=== PATIENT | male | born 1965 | race Caucasian/White ===

== ENCOUNTER 2018-09-21 04:58 | Observation (INO) | payer OTHER ==
[~2018-09-21] VITALS: Ht 172.7 cm; Wt 84.1 kg
--- NOTE | ~2018-09-21 | HEMODYNAMI ---
PATIENT:LETY SWEENEY MEDICAL RECORD: [id number] : 63 LOCATION:NIS[facility] PerezKEYANA ADMISSION DATE: 09/21/18 Generatedon:09/21/201811:29 Patient name: LETY SWEENEY Patient #: [id number] SSN: D OB: 1965 Date of study: 09/21/2018 Page: Of Hemodynamic Procedure Report Patient Data Patient Demographics Procedure consent was obtained First Name: LETY Gender: Male Last Name: ZAHRA : 1965 Patient #: [id number] Age: 53 year(s) Race: Additional ID: [id number] Contact details Address: [address] [place] [address] State: [place] City: [place] Zip code: [address] Admission Admission Data Admission Date: 09/21/2018 Admission Time: 9:17 Room #: LANDRY Lab Results Lab Result Date: 09/21/2018 Lab Result Time: 5:10 Biochemistry Name Units Result Min Max BUN mg/dl 26 --(----)-* 7 18 Creatinine mg/dl 1.2 --(---*)-- 0.6 1.3 CBC Name Units Result Min Max Hematocrit % 49 --(--*-)-- 42 54 Hemoglobin g/dl 17.8 --(----)*- 13.5 17.5 Procedure Procedure Types Cath Procedure Diagnostic Procedure LHC LHC w/Coronaries Procedure Description Procedure Date Procedure Date: 09/21/2018 Procedure Start Time: 11:18 Procedure End Time: 11:27 Procedure Staff Name Function Maxx Flores MD Performing Physician Silvana Templeton RT Monitor Leighann Villavicencio RT Scrub Ravindra Gonzalez RN Nurse Procedure Data Cath Procedure Fluoroscopy Diagnostic fluoroscopy Total fluoroscopy Time: 1.4 time: 1.4 min min Diagnostic fluoroscopy Total fluoroscopy dose: 390 dose: 390 mGy mGy Contrast Material Contrast Material Type Amount (ml) Isovue 300 44 Entry Location Entry Primary Successful Side Size Upsize Upsize Entry Closure Larsen ccessful Closure Location (Fr) 1 (Fr) 2 (Fr) Remarks Device Remarks Radial Right 6 Fr Mechanical artery Short Compression Estimated blood loss: 5 ml Diagnostic catheters Device Type Used For End Catheter Placement DIAGNOSTIC [place] 110cm 5 Multi-vessel Fr catheter ([id number]) Angiography Procedure Complications No complications Procedure Medications Medication Administration Route Dosage 0.9% NaCl I.V. 100 ml/hr Oxygen etCO2 Nasal cannula 2 l/min Heparin Flush Bag added to field 2 bags (1000units/500ml NS) Lidocaine 2% added to field 20 Radial Cocktail added to field 1 syringe (Verapomil 2mg/Nitro 400mcg/Heparin 1500units) Versed I.V. 2 mg Fentanyl I.V. 100 mcg Radial Cocktail I.A. 1 syringe (Verapomil 2mg/Nitro 400mcg/Heparin 1500units) Hemodynamics Rest HGB: 17.8 (g/dl) Heart Rate: 103 (bpm) Pressure Samples Time Site Value (mmHg) Purpose Heart Use Rate(bpm) 11:21 LV 73/5,9 Snapshot 106 Snapshots Pre Cath Intra NCS Post Cath Vital Signs Time Heart Resp SPO2 etCO2 NIBP (mmHg) Rhythm Pain Sedation Rate (ipm) (%) (mmHg) Status Level (bpm) 11:00:23 106 24 99 31.3 141/85(103) NSR 0 (11) 10(A) , No pain 11:04:37 105 16 98 33.6 128/81(104) NSR 0 (11) 10(A) , No pain 11:08:45 106 14 96 34.3 127/77(98) NSR 0 (11) 10(A) , No pain 11:12:57 105 14 97 35 129/73(97) NSR 0 (11) 10(A) , No pain 11:17:04 105 14 97 35 126/72(96) NSR 0 (11) 10(A) , No pain 11:21:19 110 14 96 33.5 111/66(88) NSR 0 (11) 9(A) , No pain 11:25:24 110 14 96 35 116/70(88) NSR 0 (11) 9(A) , No pain Medications Time Medication Route Dose Verified Delivered Reason Notes Effectiveness by by 11:00:25 0.9% NaCl I.V. 100 Ravindra Ravindra Per ml/hr Carlos Gonzalez physician RN RN 11:00:35 Oxygen etCO2 2 l/min Ravindra Ravindra Per Nasal Carlos Gonzalez physician cannula RN RN 11:00:47 Heparin Flush added 2 bags Ravindra Ravindra used for Bag to Loremma Gonzalez procedure (1000units/500ml field RN RN NS) 11:00:58 Lidocaine 2% added 20ml Ravindra Ravindra for local to vial Lorigan Carlos anesthetic field RN RN 11:01:13 Radial Cocktail added 1 Ravindra Ravindra used for (Verapomil to syringe Lorigan Carlos procedure 2mg/Nitro field RN RN 400mcg/Heparin 1500units) 11:15:54 Versed I.V. 2 mg Ravindra Ravindra for sedation Carlos Gonzalez RN RN 11:16:03 Fentanyl I.V. 100 mcg Ravindra Ravindra for sedation Carlos Gonzalez RN RN 11:20:44 Radial Cocktail I.A. 1 Ravindra Maxx for (Verapomil syringe Carlos Flores MD vasodilation 2mg/Nitro RN 400mcg/Heparin 1500units) Procedure Log Time Note 10:43:46 Informed consent obtained and on chart 10:44:21 Ravindra Gonzalez RN sent for patient. Start room use. 10:44:22 Time tracking: Regular hours (M-F 7:00 - 5:00) 10:44:26 Plan of Care:Hemodynamics will remain stable., Cardiac rhythm will remain stable., Comfort level will be maintained., Respiratory function will remain adequate., Patient/ family verbilizes understanding of procedure., Procedure tolerated without complication., Recovers from procedure without complications.. 10:54:39 Patient received from Pre/Post Procedure Room to CCL 2 Alert and oriented. Tansferred to table in Supine position. 10:54:40 Warm blankets applied, and sharon hugger turned on for patient comfort. 10:54:40 Correct patient and procedure confirmed by team. 10:54:41 ECG and BP/O2 sat monitors applied to patient. 10:56:23 H&P Date Dictated: 09/21/2018 Within 30 days and on chart.. 10:56:25 Pre-procedure instructions explained to patient. 10:56:25 Pre-op teaching completed and patient verbalized understanding. 10:56:42 Family unavailable. 10:56:43 Patient NPO since Midnight. 10:56:47 Previous problem with sedation/anesthesia? No ? 10:56:48 Snore? Yes 10:56:49 Sleep apnea? No 10:56:50 Deviated septum? No 10:56:53 Opens mouth fully? Yes 10:56:54 Sticks out tongue? Yes 10:56:55 Airway obstruction? No ? 10:57:01 Dentures? Yes partial in tight 10:57:04 Is the patient allergic to Iodine/contrast media? No. 10:57:08 Is patient on blood thinner?No 10:57:09 Patient diabetic? Yes. 10:57:10 If diabetic: On Metformin? No 10:58:41 Lab Result : BUN 26 mg/dl 10:58:41 Lab Result : Creatinine 1.2 mg/dl 10:58:41 Lab Result : Hematocrit 49 % 10:58:41 Lab Result : Hemoglobin 17.8 g/dl 10:58:47 Lab results completed and on chart. 10:58:51 Right Radial & Right Groin area was prepped with chlora-prep and draped in sterile fashion 10:58:52 Alarms reviewed by R. N. 10:58:52 Sharps counted by scrub and verified by R.N. 10:58:57 Pre procedure: right dorsailis pedis pulse 2+ Normal; easily identifiable; not easily obliterated 10:58:59 Modified Lalo's test Ulnar < 7 seconds 10:59:01 Patient pain scale 0/10 ?. 10:59:16 IV patent on arrival in left antecubital with 0.9% NaCl at [facility]. 10:59:22 Vital chart was started 10:59:23 Baseline sample Acquired. 10:59:25 Rhythm: sinus tachycardia 10:59:26 Full Disclosure recording started 11:00:25 0.9% NaCl 100 ml/hr I.V. was administered by Ravindra Gonzalez RN; Per physician; 11:00:35 Oxygen 2 l/min etCO2 Nasal cannula was administered by Ravindra Gonzalez RN; Per physician; 11:00:47 Heparin Flush Bag (1000units/500ml NS) 2 bags added to field was administered by Ravindra Gonzalez RN; used for procedure; 11:00:58 Lidocaine 2% 20ml vial added to field was administered by Ravindra Gonzalez RN; for local anesthetic; 11:01:13 Radial Cocktail (Verapomil 2mg/Nitro 400mcg/Heparin 1500units) 1 syringe added to field was administered by Ravindra Gonzalez RN; used for procedure; 11:14:57 Physician arrived 11:14:57 --------ALL STOP TIME OUT------ 11:14:58 Final Timeout: patient, procedure, and site verified with staff and physician. All members of the team are in agreement. 11:15:02 Right Radial & Right Groin site verified by team. 11:15:05 Physical assessment completed. ASA score P 2 - A patient with mild systemic disease as per Maxx Flroes MD. 11:15:10 Sedation plan: IV Moderate Sedation Medication:Versed, Fentanyl 11:15:20 Use device set Radial Dx or PCI 11:15:21 ACIST Syringe (11607) opened to sterile field. 11:15:22 Medline Cath Pack ([id number]) opened to sterile field. 11:15:22 Bag Decanter (2002S) opened to sterile field. 11:15:23 DIAGNOSTIC WIRE .035 260cm J wire (108462) opened to sterile field. 11:15:23 ACIST Hand Control (29704) opened to sterile field. 11:15:23 ACIST Manifold (18713) opened to sterile field. 11:15:24 Tegaderm 4 x 4 (1626W) opened to sterile field. 11:15:26 MBrace Wrist Support ([id number]) opened to sterile field. 11:15:28 SHEATH 6FR Slender (83-7848) opened to sterile field. 11:15:54 Versed 2 mg I.V. was administered by Ravindra Gonzalez RN; for sedation; 11:16:03 Fentanyl 100 mcg I.V. was administered by Ravindra Gonzalez RN; for sedation; 11:18:44 Procedure started. 11:18:56 Local anesthetic to right radial artery with Lidocaine 2% by Maxx Flores MD.INITIAL ACCESS ONLY 11:19:35 A 6 Fr Short sheath was inserted into the Right Radial artery 11:19:40 A DIAGNOSTIC [place] 110cm 5 Fr catheter (808042) was advanced over the wire and used for Multi-vessel Angiography. 11:20:44 Radial Cocktail (Verapomil 2mg/Nitro 400mcg/Heparin 1500units) 1 syringe I.A. was administered by Maxx Flores MD; for vasodilation; 11:21:41 LV hemodynamics recorded. 11:21:43 LV gram done using KRUEGER 11::45 Injector settings: Ml/sec: 5, Volume: 15, 11:21:51 EF : 65 % 11:22:01 RCA angiography performed. 11::49 Injector settings: Ml/sec: 3, Volume: 6, 11:22:52 LCA angiography performed. 11::54 Injector settings: Ml/sec: 3, Volume: 6, 11:24:39 Catheter removed. 11:24:50 TR BAND Standard ([id number]) opened to sterile field. 11:25:00 Sheath removed intact; hemostasis achieved with Mechanical Compression to the Right Radial artery. 11:25:02 Procedure ended.(Physican Out) 11:25:42 Fluoroscopy time 01.40 minutes. 11:25:47 Fluoroscopy dose: 390 mGy 11:25:47 Flurop Dose total: 390 11:25:59 Contrast amount:Isovue 300 44ml. 11:26:00 Sharps counted by scrub and verified by R.N. 11:26:03 TR band inflated with 10cc of air. 11:26:04 Insertion/operative site no bleeding no hematoma. 11:26:11 Post right radial artery:stable 11:26:13 Post Procedure Pulses reassessed and unchanged 11:26:16 Post procedure rhythm: unchanged. 11:26:18 Estimated blood loss: 5 ml 11:26:20 Post procedure instruction explained to patient.Patient verbalizes understanding. 11:26:20 Patient needs reinforcement of post procedure teaching. 11:26:30 Procedure and supply charges have been captured, reviewed, submitted and are correct. 11:26:36 Procedure Complication : No complications 11:26:52 Vital chart was stopped 11:26:54 See physician's report for complete and final results. 11:26:58 Report given to [facility]. 11:27:01 Patient transfered to [facility] with Stretcher. 11:27:04 Procedure ended. 11:27:04 Full Disclosure recording stopped 11:27:08 End room use (Document Last) Device Usage Item Name Manufacture Quantity Catalog Hospital Part Current Minimal Lot# / Number Charge Number Stock Stock Serial# Code ACIST Acist 1 01790 [id number] 190472 344400 20 Syringe Medical (73069) Systems Inc Medline Medline 1 [id number] 155837 72139 296164 5 Cath Pack ([id number]) Bag Microtek 1 2001S 079562 41456 525273 5 Decanter Medical Inc. (2001S) DIAGNOSTIC [place] 1 140842 441964 112559 539945 30 WIRE .035 260cm J wire (466238) ACIST Hand Acist 1 90185 696332 921124 768371 5 Control Medical (71844) Systems Inc ACIST Acist 1 82550 191263 243718 149094 5 Manifold Medical (40046) Systems Inc Tegaderm 4 3M 1 1626W 465349 164801 717670 5 x 4 (1626W) MBrace Advanced 1 140-0250-00 723156 26638 905914 5 Wrist Vascular Support Dynamics ([id number]) SHEATH 6FR Terumo 1 [id number] 429226 306354 600636 40 Slender (80-1060) DIAGNOSTIC Terumo 1 40-7043 244294 999780 036069 5 [place] 110cm 5 Fr catheter (952604) TR BAND Terumo 1 [id number] 105313 801500 392534 40 Standard ([id number]) Signature Audit [employer] Stage Time Signature Unsigned Intra-Procedure 09/21/2018 Leighann Saud 11:28:56 AM RT(R) Signatures Monitor : Silvana Templeton Signature : RT Date : Time : [facility] [address] [place] [address]
--- NOTE | ~2018-09-21 | OP ---
PATIENT NAME: LETY SWEENEY MEDICAL RECORD: [id number] :63 LOCATION:D.M2 D.0 ADMISSION DATE:09/21/18 SURGEON: ANGI MCDANIEL MD DATE OF OPERATION: 09/21/2018 PROCEDURES: 1. Left heart catheterization. 2. Selective coronary angiography. 3. Left ventriculogram. INDICATION: Angina and coronary artery disease. DESCRIPTION OF PROCEDURE: After informed consent was obtained and after detailed description of risks, benefits as well as alternative therapies, the patient elected to proceed with angiogram and heart catheterization. The right radial area was prepped and draped in normal sterile fashion. Right radial artery was cannulated via modified Seldinger technique with the placement of 5-Divehi sheath. All catheters exchanged through this sheath. FINDINGS: Left ventriculogram was performed in standard 30-degree KRUEGER view, reveals good cardiac wall motion throughout all segments. Overall ejection fraction estimated 60%. SELECTIVE CORONARY ANGIOGRAPHY: 1. Left main is with no significant angiographic disease. 2. Left anterior descending is small, thread-like, mildly diffusely diseased throughout the course, especially the distal course. 3. The left circumflex has moderate irregularities, no flow-limiting stenosis. A very large dominant vessel. 4. Right coronary is a large vessel as well with no significant angiographic disease. OVERALL IMPRESSION: Mild disease of a very small left anterior descending that will be treated medically. No need for transcatheter revascularization at this time. TRANSINT:[id number] Voice Confirmation ID: [id number] DOCUMENT ID: [id number] ANGI MCDANIEL MD CC: ALEX RASMUSSEN DO [id number] DICTATION DATE: 09/21/18 1128 FAMILY WORKER: 09/21/18 1200 ADM IN [facility] [address] [place] [address]
--- NOTE | ~2018-09-21 | CN ---
PATIENT NAME:LETY SWEENEY MEDICAL RECORD: [id number] : 63 LOCATION:DASIAHD.E07- ADMIT DATE: 09/21/18 ACCOUNT: [id number] CONSULTING PHYSICIAN: ANGI MCDANIEL MD REFERRING PHYSICIAN: JASMIN KING MD DATE OF CONSULTATION: 09/21/2018 DIAGNOSES: 1. Unstable angina. 2. Family history of coronary artery disease. 3. Insulin-dependent diabetes. HISTORY OF PRESENT ILLNESS: This is a gentleman with no previous cardiac history, but a very strong family history of coronary artery disease, who presents with increasing episodes of chest pain, chest discomfort as well. He was noted to have his insulin pump off line and his blood sugar was 500 this is being treated and his insulin pump is going back on line. REVIEW OF SYSTEMS: The patient reports easy bruising but reports no swollen glands. The patient reports no fever, no night sweats, no significant weight gain, no significant weight loss. No significant exercise tolerance. The patient reports no dry eyes, no irritation, no vision change. Patient reports no difficulty hearing and no ear pain. Patient reports no frequent nose bleeds or nose and sinus problems. Patient reports on arm pain on exertion. No shortness of breath while lying down. No history of heart murmur. Patient reports no cough, no wheezing or coughing up blood. Patient reports no abdominal pain, no vomiting. Normal appetite. No diarrhea and not vomiting blood. No nausea and no constipation. Patient reports no incontinence. No difficulty urinating. No hematuria. No increased frequency. Patient reports no muscle aches. No weakness, no arthralgias, no back pain. No swelling of the extremities. Patient reports no abnormal mole, no jaundice, no rashes. Reports no loss of consciousness. No weakness and no numbness. No seizures, dizziness, or headaches. The patient reports no depression, no sleep disturbance, feeling safe in a relationship and no alcohol abuse. Patient reports on fatigue. Reports no runny nose or sinus pressure. No itching, no hives, and no frequent sneezing. PHYSICAL EXAMINATION: GENERAL APPEARANCE: Well-nourished, well-developed, appears stated age. Level of distress, comfortable. PSYCHIATRIC: Mental status, alert, normal affect. Orientation, oriented to time, place and person. EYES: Lids and conjunctiva, noninjected. No discharge, no pallor. ENT: Lips, teeth, gums, normal dentition. Oropharynx, no cyanosis, no pallor. NECK: Carotid arteries, bilateral normal upstroke, no bruits, no thrills. JUGULAR VEINS: No jugular venous pressure or distention. CERVICAL LYMPH NODES: Nontender, nonenlarged. THYROID: Not enlarged. Nontender. No nodules. LUNGS: Respiratory effort, unlabored. CHEST: Normal curvature. No thoracic deformity. No chest wall tenderness. Percussion, resonant. Auscultation, clear. No wheezes, no rales, no rhonchi. CARDIOVASCULAR: Precordial exam, nondisplaced. No heaves or pericardial thrills. Rate and rhythm, regular. Heart sounds, normal S1, normal S2. No S3, no gallop, no rub. Systolic murmur, not heard. Diastolic murmur, not heard. EXTREMITIES: No cyanosis, no edema. Peripheral pulses, full and equal in all CONSULT REPORT [id number] LEBRITTON,LETY extremities, except as noted. No bruits appreciated. ABDOMEN: Soft, nondistended. Normal aorta. No bruit. Nontender. No masses. Liver, nontender, no hepatomegaly. Spleen, nontender, no splenomegaly. MUSCULOSKELETAL: No joint tenderness. No joint swelling. No erythema. NEUROLOGICAL: Normal gait, normal strength, normal tone. SKIN: Warm and dry. OVERALL IMPRESSION: Angina in an unstable fashion in a patient with multiple risk factors including longstanding insulin-dependent diabetes and a very strong family history of coronary artery disease is high likelihood. He has hemodynamically significant coronary artery disease. We will proceed with coronary angiography. Further care depends upon findings of the angiography. TRANSINT:[id number] Voice Confirmation ID: [id number] DOCUMENT ID: [id number] ANGI MCDANIEL MD CC: [id number] DICTATION DATE: 09/21/18823 YEAST DISTILLER: 09/21/18 0950 ADM IN [facility] [id number] [place] [address]
--- NOTE | ~2018-09-21 | MORECARE ---
CASE MANAGEMENT DISCHARGE SUMMARY PATIENT: LETY SWEENEY UNIT: [id number] ADM DATE: 09/21/18 AGE: 53 : 63 SEX: M ROOM/BED: D.2120 AUTHOR: RIGOBERTO KIM PHYSICIAN: REFERRING PHYSICIAN: JASMIN KING MD DATE OF SERVICE: 09/24/18 Discharge Plan Patient Name: LETY SWEENEY Facility: [facility]:[place] : 1965 Planned Disposition: Home Anticipated Discharge Date: 09/21/18 Discharge Date: 09/21/2018 Expected LOS: 1 Initial Reviewer: [email or web address] Initial Review Date: 09/24/2018 Generated: 09/24/18 10:55 am Patient Name: LETY SWEENEY Page [id number] at 0955 All edits/amendments must be made on the electronic document DICTATION DATE: 09/24/18954 ROD FINISHER: АННА 09/24/18954 RPT#: [id number] DC DATE:09/21/18 STATUS: DIS IN [facility] [address] [place] [address] END OF REPORT
[2018-09-21] MEDS ORDERED: INSULIN (05:02)
[2018-09-21 05:22] LABS: BASOPHILS 0.2 % (0-2); EOSINOPHILS 1.2 % (0-7); HEMATOCRIT 49.2 % (42.0-54.0); HEMOGLOBIN 17.8 g/dL (13.5-17.5); IMMATURE GRANULOCYTES 0.3 % (0-5); LYMPHOCYTES 13.1 % (15-50); MCH 33.7 pg (26.0-34.0); MCHC 36.2 g/dL (31.0-37.0); MCV 93.2 fL (80.0-100.0); MEAN PLATELET VOLUME 10.1 fL (7.4-10.4); MONOCYTES 6.3 % (2-11); NEUTROPHILS 78.9 % (40-80); PLATELET COUNT 185 10x3/uL (130-400); RBC 5.28 10x6/uL (4.20-6.10); RDW 12.4 % (11.5-14.5); WBC 13.1 10x3/uL (4.8-10.8)
[2018-09-21 05:47] LABS: APTT 27.2 SECONDS (22.8-39.4); INR 1.01 (0.85-1.17); PROTIME 12.8 SECONDS (11.6-15.0)
[2018-09-21 06:06] LABS: ALKALINE PHOSPHATASE 151 U/L (46-116); ALT (SGPT) 41 U/L (10-68); BILIRUBIN - TOTAL 2.36 mg/dL (0.2-1.3); CALCIUM 9.8 mg/dL (8.5-10.1); CARBON DIOXIDE 21.8 mmol/L (21.0-32.0); CHLORIDE - SERUM 100 mmol/L (98-107); CKMB 1.5 U/L (0.0-3.6); CREATINE KINASE 63 UL (21-232); CREATININE - SERUM 1.2 mg/dL (0.6-1.3); MAGNESIUM - SERUM 1.9 mg/dL (1.8-2.4); POTASSIUM - SERUM 4.8 mmol/L (3.5-5.1); PROTEIN - SERUM 7.1 g/dL (6.4-8.2); SODIUM 136 mmol/L (136-145); TROPONIN-I < 0.017 ng/mL (0.000-0.060); UREA NITROGEN 26 mg/dL (7-18); eGFR NON AFRICAN AMERICAN 67 mL/min (90-120)
[2018-09-21 06:08] LABS: CALC OSMOLALITY 300 mosm/kg (275-300)
[2018-09-21 06:09] LABS: GLUCOSE 524 mg/dL (74-106)
[2018-09-21 07:22] LABS: APPEARANCE CLEAR (CLEAR); BILIRUBIN NEGATIVE (NEGATIVE); COLOR YELLOW (YELLOW); GLUCOSE 1000 mg/dL (NEGATIVE); KETONE MODERATE mg/dL (NEGATIVE); NITRITE NEGATIVE (NEGATIVE); PROTEIN NEGATIVE (NEGATIVE); UROBILINOGEN NORMAL (NORMAL)
[2018-09-21 07:27] LABS: RED CELLS - URINE NONE SEEN /hpf (0-5); WHITE CELLS - URINE NSEEN /hpf (0-5)
[2018-09-21 09:48] VITALS: BP 151/85
[2018-09-21 12:10] VITALS: BP 115/73; Ht 172.7 cm; Wt 84.1 kg
[2018-09-21] MEDS ORDERED: NOVOLOG100 UNIT/1 SQ (12:27)
[2018-09-21] MEDS ORDERED: COZAAR100 MG PO (12:28)
[2018-09-21] MEDS ORDERED: LIPITOR40 MG PO (12:28)
[2018-09-21 12:58] VITALS: BP 115/73
[2018-09-21] MEDS ORDERED: ASPIRIN325 MG PO (13:40)
== END 2018-09-21 14:58 | disposition home or self-care (01) ==
LOC: D.ER 04:58 → D.EDHOLD 09:17 → OBSVTIME 09:17 → D.EDHOLD 09:17 → D.M2 09:17 → D.ER 09:17 → D.CLR 10:09 → D.EDHOLD 10:09 → D.CLR 11:39 → D.M2 11:39 → D.EDHOLD 14:58
PROVIDERS: Family Medicine
DX: I25.119 Atherosclerotic heart disease of native coronary artery with unspecified angina pectoris (principal); E11.65 Type 2 diabetes mellitus with hyperglycemia; Z87.891 Personal history of nicotine dependence